=== PATIENT | male | born 1970 | race Two or more races ===

== ENCOUNTER 2022-02-18 17:39 | Emergency (ER) | payer OTHER ==
[~2022-02-18] VITALS: Ht 162.6 cm; Wt 81.6 kg
== END 2022-02-18 23:02 | disposition left against medical advice (07) ==
LOC: ER 17:39
DX: T78.3XXA Angioneurotic edema, initial encounter (principal); I10 Essential (primary) hypertension; I11.9 Hypertensive heart disease without heart failure; E78.00 Pure hypercholesterolemia, unspecified; I25.2 Old myocardial infarction; J05.10 Acute epiglottitis without obstruction